=== PATIENT | male | born 1965 | race Caucasian/White ===

== ENCOUNTER 2024-12-09 21:56 | Outpatient (CLI) | payer OTHER, SELFPAY | END 2024-12-09 21:57 | disposition home or self-care (01) | LOC: AMB 12-11 12:51 | PROVIDERS: Visit Provider Family Medicine | DX: F10.129 Alcohol abuse with intoxication, unspecified (principal); R51.9 Headache, unspecified; H53.149 Visual discomfort, unspecified | CPT/HCPCS: A0425; A0427 ==